=== PATIENT | male | born 1945 | race Caucasian/White ===

== ENCOUNTER 2021-06-22 06:00 | Outpatient (RCR) | payer OTHER, SELFPAY | END 2021-07-11 23:59 | disposition home or self-care (01) | LOC: GPT 06:00 | PROVIDERS: Referring Provider Physician Assistant; Visit Provider Physician Assistant | DX: M48.02 Spinal stenosis, cervical region (principal) | CPT/HCPCS: 97110; 97140; 97161 ==

== ENCOUNTER 2021-07-12 06:00 | Outpatient (RCR) | payer OTHER, SELFPAY | END 2021-08-11 23:59 | disposition home or self-care (01) | LOC: GPT 06:00 | PROVIDERS: Referring Provider Physician Assistant; Visit Provider Physician Assistant | DX: M48.02 Spinal stenosis, cervical region (principal) | CPT/HCPCS: 97110; 97140 ==

== ENCOUNTER → 2023-04-17 14:39 | Outpatient (BNVA) | payer OTHER, SELFPAY | PROVIDERS: PCP Internal Medicine; Referring Provider Internal Medicine; Visit Provider Dermatology | DX: L57.0 Actinic keratosis (principal); D48.5 Neoplasm of uncertain behavior of skin; L82.1 Other seborrheic keratosis; L81.4 Other melanin hyperpigmentation; D18.01 Hemangioma of skin and subcutaneous tissue | CPT/HCPCS: 11102; 17000; 99203 ==

== ENCOUNTER → 2023-05-21 10:36 | Outpatient (BNVA) | payer OTHER, SELFPAY | PROVIDERS: PCP Internal Medicine; Visit Provider Dermatology | DX: D04.62 Carcinoma in situ of skin of left upper limb, including shoulder (principal) | CPT/HCPCS: 17262 ==

== ENCOUNTER 2024-09-11 06:30 | Outpatient (RCR) | payer OTHER, SELFPAY | END 2024-10-11 23:59 | disposition home or self-care (01) | LOC: GPT 06:30 | PROVIDERS: Visit Provider Internal Medicine | DX: M54.59 Other low back pain (principal) | CPT/HCPCS: 97110; 97112; 97140; 97162 ==

== ENCOUNTER 2024-10-12 05:00 | Outpatient (RCR) | payer OTHER, SELFPAY | END 2024-11-06 14:46 | disposition home or self-care (01) | LOC: GPT 05:00 | PROVIDERS: Visit Provider Internal Medicine | DX: M54.59 Other low back pain (principal) | CPT/HCPCS: 97110; 97112; 97140 ==

== ENCOUNTER 2025-05-12 09:53 | Outpatient (RCR) | payer OTHER, SELFPAY | END 2025-05-13 23:59 | disposition home or self-care (01) | LOC: GPT 09:53 | PROVIDERS: Visit Provider Internal Medicine | DX: M25.559 Pain in unspecified hip (principal) | CPT/HCPCS: 97110; 97112; 97140; 97161 ==